=== PATIENT | female | born 1955 | race Caucasian/White ===

== ENCOUNTER 2016-07-16 17:14 | Emergency (ER) | payer OTHER ==
[2016-07-16 17:18] VITALS: BP 147/106; PULSE 82; RESP 18; TEMP 98.1; O2SAT 95
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
[2016-07-16] MEDS ORDERED: HYDROCOD/APAP 5/325 PREPACK#6 BTL TAKEHOME ONE (18:42)
== END 2016-07-16 19:15 | disposition home or self-care (01) ==
DX: S82.844A Nondisplaced bimalleolar fracture of right lower leg, initial encounter for closed fracture (principal); V18.0XXA Pedal cycle driver injured in noncollision transport accident in nontraffic accident, initial encounter; Y99.8 Other external cause status; Y93.89 Activity, other specified